=== PATIENT | male | born 1955 | race Caucasian/White ===

== ENCOUNTER 2017-04-23 15:22 | Inpatient (IN) | payer OTHER ==
[~2017-04-23] VITALS: Ht 182.9 cm; Wt 119.9 kg
[2017-04-23 16:16] LABS: HEMATOCRIT 37.2 % (38.0-50.0); MCH 34.2 PG (29.0-34.0); MCHC 36.8 G/DL (30.0-36.0); MCV 92.8 FL (86-99); MEAN PLAT.VOLUME 8.7 uM^3 (9.0-12.4); PLATELET COUNT 215 K/uL (156-360); RBC DIS.WIDTH-CV 12.2 % (11.8-14.6); RBC DIS.WIDTH-SD 41.6 % (39-53); RED BLOOD COUNT 4.01 M/uL (4.00-5.50); WHITE BLOOD COUNT 16.9 K/uL (4.1-10.2)
[2017-04-23 16:24] LABS: CHLORIDE 88 mEq/L (99-109); POTASSIUM 3.9 mEq/L (3.7-5.4); SODIUM 120 mEq/L (136-147)
[2017-04-23 16:25] LABS: GLUCOSE 135 mg/dL (70-99)
[2017-04-23 16:27] LABS: ANION GAP 12 MEQ/L (2-14)
[2017-04-23 16:29] LABS: GFR ESTIMATE (CALCULATED) > 59 mL/min/
[2017-04-23 16:30] LABS: UREA NITROGEN (BUN) 12 mg/dL (9-23)
[2017-04-23 16:37] LABS: TROP-I INTERPRETATION NEGATIVE; TROPONIN-I 0.01 ng/mL (0.0-0.30)
[2017-04-23] MEDS ORDERED: HYDROCHLOROTHIA25 MG PO (17:15)
[2017-04-23 17:35] LABS: ABS NEUTROPHIL COUNT 14.8; ANISOCYTOSIS 1+; BAND NEUTROPHILS 10.5 % (0-8.0); EOSINOPHIL ABS CT 0; INSTRUMENT ABS NEUTROPHIL CT 14.3 K/uL; LYMPHOCYTES 4.4 % (15.0-45.0); MACROCYTES 2+; METAMYELOCYTES 2.6 %; POLYCHROMASIA 1+; SEG.NEUTROPHILS 77.2 % (46.0-76.0)
[2017-04-23] MEDS ORDERED: IRBESARTAN300 MG PO (17:50)
[2017-04-23 17:55] LABS: INFLUENZA A VIRAL ANTIGEN NEGATIVE; INFLUENZA B VIRAL ANTIGEN NEGATIVE
[2017-04-23 19:29] LABS: ADD MIUA? YES; BILIRUBIN NEGATIVE; BLOOD MODERATE; COLOR AMBER ((YELLOW)); GLUCOSE (STRIP) 50; KETONES NEGATIVE; LEUKOCYTES NEGATIVE; NITRITE NEGATIVE; PROTEIN (STRIP) 100
[2017-04-23 19:48] LABS: BACTERIA RARE /HPF; EPITHELIAL CELLS RARE /HPF; MUCUS TRACE /LPF; WHITE BLOOD CELLS 0-5 /HPF (0-5)
[2017-04-23 19:56] LABS: MAGNESIUM 1.6 mg/dL (1.3-2.7)
[2017-04-23 20:00] VITALS: BP 153/98
[2017-04-23 20:03] LABS: URIC ACID 3.1 mg/dL (3.1-9.2)
[2017-04-23 20:35] LABS: ALKALINE PHOSPHATASE 69 IU/L (3-129); ANION GAP 8 MEQ/L (2-14); CHLORIDE 92 MEQ/L (99-109); GFR ESTIMATE (CALCULATED) > 59 mL/min/; GLUCOSE 139 mg/dL (70-99); SAMPLE HEMOLYSIS CHECK 0; SAMPLE ICTERIC CHECK 0; SAMPLE LIPEMIA CHECK 0; SODIUM 118 MEQ/L (136-147); UREA NITROGEN (BUN) 11 mg/dL (9-23)
[2017-04-23 21:30] LABS: SERUM ETHYL ALCOHOL < 10 mg/dL
[2017-04-23 23:07] VITALS: BP 113/73
[2017-04-23 23:28] LABS: CHLORIDE 95 mEq/L (99-109); POTASSIUM 3.2 mEq/L (3.7-5.4); SODIUM 123 mEq/L (136-147)
[2017-04-23 23:29] LABS: GLUCOSE 131 mg/dL (70-99)
[2017-04-23 23:31] LABS: ANION GAP 10 MEQ/L (2-14)
[2017-04-23 23:33] LABS: GFR ESTIMATE (CALCULATED) > 59 mL/min/
[2017-04-23 23:34] LABS: UREA NITROGEN (BUN) 10 mg/dL (9-23)
[2017-04-24] VITALS (7 sets, daily range): BP systolic 106–127; BP diastolic 73–86
[2017-04-24 06:59] LABS: HEMATOCRIT 32.4 % (38.0-50.0); MCH 34.6 PG (29.0-34.0); MCHC 36.4 G/DL (30.0-36.0); PLATELET COUNT 182 K/uL (156-360); RBC DIS.WIDTH-CV 12.7 % (11.8-14.6); RBC DIS.WIDTH-SD 44.2 % (39-53); RED BLOOD COUNT 3.41 M/uL (4.00-5.50); WHITE BLOOD COUNT 14.9 K/uL (4.1-10.2)
[2017-04-24 07:30] LABS: ABS NEUTROPHIL COUNT 13.1; ANISOCYTOSIS 1+; BAND NEUTROPHILS 8.6 % (0-8.0); BURR CELLS 1+; EOSINOPHIL ABS CT 0.1; EOSINOPHILS 0.9 % (0-5.0); INSTRUMENT ABS NEUTROPHIL CT 11.6 K/uL; LYMPHOCYTES 3.4 % (15.0-45.0); MACROCYTES 1+; PLAT.SUFFICIENCY ADEQUATE; POIKILOCYTOSIS 1+; SEG.NEUTROPHILS 79.3 % (46.0-76.0)
[2017-04-24 07:34] LABS: ANION GAP 10 MEQ/L (2-14); CHLORIDE 97 MEQ/L (99-109); GFR ESTIMATE (CALCULATED) > 59 mL/min/; GLUCOSE 116 mg/dL (70-99); SAMPLE HEMOLYSIS CHECK 0; SAMPLE ICTERIC CHECK 0; SAMPLE LIPEMIA CHECK 0; SODIUM 127 MEQ/L (136-147); UREA NITROGEN (BUN) 12 mg/dL (9-23)
[2017-04-24 10:20] LABS: INTERNAL CONTROL VALID? YES
[2017-04-24 14:22] LABS: METH RESISTANT S AUREUS PCR NEGATIVE (NEGATIVE)
[2017-04-24 14:23] LABS: PROBE CHECK PASS; SPECIMEN PROCESSING CONTROL PASS
[2017-04-25 03:47] VITALS: BP 128/89
[2017-04-25 05:36] LABS: HEMATOCRIT 34.5 % (38.0-50.0); MCH 32.9 PG (29.0-34.0); MCHC 34.2 G/DL (30.0-36.0); MCV 96.1 FL (86-99); MEAN PLAT.VOLUME 8.9 uM^3 (9.0-12.4); RBC DIS.WIDTH-CV 12.8 % (11.8-14.6); RBC DIS.WIDTH-SD 45.9 % (39-53); RED BLOOD COUNT 3.59 M/uL (4.00-5.50); WHITE BLOOD COUNT 13.9 K/uL (4.1-10.2)
[2017-04-25 06:02] LABS: ANION GAP 9 MEQ/L (2-14); CHLORIDE 98 MEQ/L (99-109); GFR ESTIMATE (CALCULATED) > 59 mL/min/; GLUCOSE 101 mg/dL (70-99); POTASSIUM 4.2 MEQ/L (3.7-5.4); SAMPLE HEMOLYSIS CHECK 0; SAMPLE ICTERIC CHECK 0; SAMPLE LIPEMIA CHECK 0; SODIUM 130 MEQ/L (136-147); UREA NITROGEN (BUN) 11 mg/dL (9-23)
[2017-04-25 06:12] LABS: PLATELET COUNT 264 K/uL (156-360)
[2017-04-25 07:11] VITALS: BP 139/93
[2017-04-25 11:06] VITALS: BP 116/78
[2017-04-25 15:11] VITALS: BP 130/83
[2017-04-25 19:15] VITALS: BP 138/85
[2017-04-25 23:25] VITALS: BP 137/94
[2017-04-26 04:10] VITALS: BP 136/93
[2017-04-26 06:57] LABS: HEMATOCRIT 32.4 % (38.0-50.0); MCHC 35.5 G/DL (30.0-36.0); MCV 95.9 FL (86-99); MEAN PLAT.VOLUME 9.3 uM^3 (9.0-12.4); PLATELET COUNT 254 K/uL (156-360); RBC DIS.WIDTH-CV 12.9 % (11.8-14.6); RBC DIS.WIDTH-SD 45.6 % (39-53); RED BLOOD COUNT 3.38 M/uL (4.00-5.50); WHITE BLOOD COUNT 7.5 K/uL (4.1-10.2)
[2017-04-26 07:07] VITALS: BP 137/86
[2017-04-26 07:22] LABS: ANION GAP 10 MEQ/L (2-14); CHLORIDE 100 MEQ/L (99-109); GFR ESTIMATE (CALCULATED) > 59 mL/min/; GLUCOSE 91 mg/dL (70-99); POTASSIUM 4.2 MEQ/L (3.7-5.4); SAMPLE HEMOLYSIS CHECK 0; SAMPLE ICTERIC CHECK 0; SAMPLE LIPEMIA CHECK 0; SODIUM 132 MEQ/L (136-147); UREA NITROGEN (BUN) 12 mg/dL (9-23)
[2017-04-26 11:01] VITALS: BP 120/77
[2017-04-26] MEDS ORDERED: LEVAQUIN750 MG PO (11:16)
[2017-04-26] MEDS ORDERED: SODIUM CHLORIDE1 G1 PO (11:16)
== END 2017-04-26 13:24 | disposition home health service (06) | DRG 871 ==
LOC: EME 15:22 → 5SOUTH 19:14 → EDOF 19:14 → ENRESERV 19:17 → 5SOUTH 19:52 → ENPENDDIS 04-26 → 5SOUTH 04-26 13:24
PROVIDERS: Hospitalist; Internal Medicine; Nurse Practitioner Adult Health; Physician Assistant
DX: A41.9 Sepsis, unspecified organism (principal); J18.1 Lobar pneumonia, unspecified organism; E87.1 Hypo-osmolality and hyponatremia; I10 Essential (primary) hypertension; F10.20 Alcohol dependence, uncomplicated; Z56.0 Unemployment, unspecified; E66.01 Morbid (severe) obesity due to excess calories; Z68.35 Body mass index [BMI] 35.0-35.9, adult; Z83.3 Family history of diabetes mellitus
CPT/HCPCS: 71020; 71275; 80048; 80048 91; 80053; 81003; 82436; 83605; 83735; 83880; 83930; 83935; 84133; 84300; 84439; 84443; 84480 90; 84484; 84550; 85025; 85027; 85379; 87040; 87070; 87205; 87449; 87502; 87641; 93005; 94640; 94640 76; 99202; 99281; 99285; G0480; J0295; J0456; J0696; J7030; J7050

== ENCOUNTER 2017-06-28 16:34 | Emergency (ER) | payer OTHER ==
[~2017-06-28] VITALS: Ht 182.9 cm; Wt 123.5 kg
[~2017-06-28 16:34] MED LIST: HYDROCHLOROTHIA25 MG PO; IRBESARTAN300 MG PO; LEVAQUIN750 MG PO; SODIUM CHLORIDE1 G1 PO
[2017-06-28 19:16] VITALS: BP 148/94
== END 2017-06-28 19:00 | disposition home or self-care (01) ==
LOC: EME 16:34
DX: S00.33XA Contusion of nose, initial encounter (principal); S00.81XA Abrasion of other part of head, initial encounter; W01.0XXA Fall on same level from slipping, tripping and stumbling without subsequent striking against object, initial encounter; I10 Essential (primary) hypertension
CPT/HCPCS: 70450; 99281; 99284